=== PATIENT | female | born 1990 | race Caucasian/White ===

== ENCOUNTER 2017-03-25 12:23 | Emergency (ER) | payer OTHER, SELFPAY ==
[~2017-03-25] VITALS: Ht 167.6 cm; Wt 60.0 kg
[2017-03-25] MEDS ORDERED: NS 1,000 ML IV ONE (13:45)
[2017-03-25] MEDS ORDERED: ONDANSETRON 4MG/2ML VIAL (J2405) IV ONE (13:45)
--- NOTE | 2017-03-25 13:56 | REP ---
PA and lateral chest: There are no comparisons. The lung sprague are clear. The cardiac size is normal The brook, mediastinum, and bony thorax are unremarkable. Impression: Negative PA and lateral chest. Signed by Rafa Miller MD 03/25/2017 01:48 P
[2017-03-25 14:29] LABS: BASO # 0.1 K/mm3 (0.0-0.2); BASO % 1.2 % (0.0-1.0); EOS # 0.2 K/mm3 (0.0-0.50); EOS % 3.3 % (0.0-3.0); LARGE UNSTAINED CELL # 0.1 K/mm3 (0.0-0.4); LARGE UNSTAINED CELL % 1.1 % (0.0-4.0); LYMPH # 1.9 K/mm3 (1.5-6.5); LYMPH % 27.1 % (24.0-44.0); MEAN CORPUSCULAR HEMOGLOBIN 30.4 pg (27.0-33.0); MEAN CORPUSCULAR HGB CONC 34.3 g/dl (32.0-36.5); MEAN CORPUSCULAR VOLUME 88.7 fl (80.0-96.0); MONO # 0.4 K/mm3 (0.0-0.8); MONO % 5.3 % (0.0-5.0); NEUTROPHILS # 4.2 K/mm3 (1.8-7.7); NEUTROPHILS % 62.1 % (36.0-66.0); PLATELET COUNT, AUTOMATED 256 k/mm3 (150-450); RED CELL DISTRIBUTION WIDTH 12.2 % (11.5-14.5); WHITE BLOOD COUNT 6.8 K/mm3 (4.0-10.0)
[2017-03-25 14:46] LABS: ALBUMIN 4.2 GM/DL (3.2-5.2); ALBUMIN/GLOBULIN RATIO 1.14 (1.00-1.93); ALKALINE PHOSPHATASE 68 U/L (45-117); ALT/SGPT 25 U/L (12-78); ANION GAP 6 MEQ/L (8-16); AST/SGOT 15 U/L (15-37); BILIRUBIN,TOTAL 1.2 MG/DL (0.2-1.0); BLOOD UREA NITROGEN 9 MG/DL (7-18); CALCIUM LEVEL 9.4 MG/DL (8.5-10.1); CARBON DIOXIDE LEVEL 28 MEQ/L (21-32); CHLORIDE LEVEL 106 MEQ/L (98-107); CREATININE FOR GFR 0.75 MG/DL (0.55-1.02); GLOMERULAR FILTRATION RATE > 60.0 (>60); GLUCOSE, FASTING 86 MG/DL (70-105); POTASSIUM SERUM 3.7 MEQ/L (3.5-5.1); SODIUM LEVEL 140 MEQ/L (136-145); TOTAL PROTEIN 7.9 GM/DL (6.4-8.2)
[2017-03-25] MEDS ORDERED: ZOFR4TAB3 PO (15:09)
[2017-03-25 15:19] VITALS: BP 110/53
--- NOTE | 2017-03-27 02:16 | ECGEPIP ---
Stationary ECG Study [facility] - ED Test Date: 2017-03-25 Pat Name: FARIHA ROGERS Department: Room: - Gender: F [employer] Operator: : 1990 Requested By: DARIEN Lucas PA-C Order Number: [id number] Reading MD: Jigar Garcia Measurements Intervals Jones Rate: 66 P: 47 WV: 147 QRS: 49 QRSD: 106 T: 20 QT: 388 QTc: 407 Interpretive Statements SINUS RHYTHM WITH SINUS ARRHYTHMIA Electronically Signed On 03-27-2017 2:15:58 EDT by Jigar Garcia
[2017-04-25] MEDS ORDERED: NAPR500T3 PO (07:37)
[2017-04-25] MEDS ORDERED: CLAR10CA3 PO (07:37)
== END 2017-03-25 15:24 | disposition home or self-care (01) ==
LOC: M ED 12:23
DX: R11.0 Nausea (principal); R07.89 Other chest pain; N80.9 Endometriosis, unspecified; K59.09 Other constipation
CPT/HCPCS: 36415; 71020; 80053; 81025; 82550; 82553; 84443; 85025; 85379; 93000; 93041; 96374; 99284; J2405

== ENCOUNTER → 2017-04-20 | Outpatient (REF) | payer OTHER ==
[~2017-04-20] MED LIST: CLAR10CA3 PO; NAPR500T3 PO; PERC5TAB12 PO; ZOFR4TAB3 PO
[2017-04-20 17:03] LABS: CONTROL LINE HCG INT CTR LINE PRESENT
[2017-04-20 17:21] LABS: ALBUMIN/GLOBULIN RATIO 1.21 (1.00-1.93); ALKALINE PHOSPHATASE 64 U/L (45-117); ALT/SGPT 21 U/L (12-78); AMYLASE 40 U/L (25-115); ANION GAP 8 MEQ/L (8-16); AST/SGOT 12 U/L (15-37); BILIRUBIN,TOTAL 0.8 MG/DL (0.2-1.0); BLOOD UREA NITROGEN 15 MG/DL (7-18); CALCIUM LEVEL 9.2 MG/DL (8.5-10.1); CARBON DIOXIDE LEVEL 26 MEQ/L (21-32); CHLORIDE LEVEL 107 MEQ/L (98-107); CHOLESTEROL LEVEL 174 MG/DL (<200); CREATININE FOR GFR 0.76 MG/DL (0.55-1.02); FREE T4 0.79 NG/DL (0.76-1.46); GLOMERULAR FILTRATION RATE > 60.0 (>60); GLUCOSE, FASTING 87 MG/DL (70-105); POTASSIUM SERUM 4.4 MEQ/L (3.5-5.1); SODIUM LEVEL 141 MEQ/L (136-145); TOTAL PROTEIN 7.3 GM/DL (6.4-8.2); TRIGLYCERIDES LEVEL 149 MG/DL (<150)
[2017-04-20 17:32] LABS: BASO % 0.7 % (0.0-1.0); EOS # 0.4 K/mm3 (0.0-0.50); EOS % 5.9 % (0.0-3.0); LARGE UNSTAINED CELL # 0.1 K/mm3 (0.0-0.4); LARGE UNSTAINED CELL % 1.6 % (0.0-4.0); LYMPH # 1.8 K/mm3 (1.5-6.5); LYMPH % 28.2 % (24.0-44.0); MEAN CORPUSCULAR HEMOGLOBIN 31.1 pg (27.0-33.0); MEAN CORPUSCULAR HGB CONC 34.3 g/dl (32.0-36.5); MEAN CORPUSCULAR VOLUME 90.5 fl (80.0-96.0); MONO # 0.3 K/mm3 (0.0-0.8); MONO % 5.3 % (0.0-5.0); NEUTROPHILS # 3.8 K/mm3 (1.8-7.7); NEUTROPHILS % 58.4 % (36.0-66.0); PLATELET COUNT, AUTOMATED 272 k/mm3 (150-450); WHITE BLOOD COUNT 6.5 K/mm3 (4.0-10.0)
== END ==
LOC: M SFHCSACK 08:20
PROVIDERS: ATTEND Physician Assistant
DX: R10.2 Pelvic and perineal pain (principal); K59.09 Other constipation; Z13.29 Encounter for screening for other suspected endocrine disorder; Z13.220 Encounter for screening for lipoid disorders; Z13.21 Encounter for screening for nutritional disorder

== ENCOUNTER 2017-04-29 13:54 | Day surgery (SDC) | payer OTHER ==
[~2017-04-29] VITALS: Ht 167.6 cm; Wt 59.9 kg
[~2017-04-29 13:54] MED LIST changes: -PERC5TAB12 PO
[2017-04-29] MEDS ORDERED: LIDOCAINE 1% MDV 20ML VIAL SQ ONE (14:15)
[2017-04-29] MEDS ORDERED: LR 1,000 ML IV ONE (14:15)
[2017-04-29 14:43] LABS: CONTROL LINE UCG INT CTR LINE PRESENT
[2017-04-29 14:57] LABS: MEAN CORPUSCULAR HEMOGLOBIN 30.6 pg (27.0-33.0); MEAN CORPUSCULAR HGB CONC 34.3 g/dl (32.0-36.5); MEAN CORPUSCULAR VOLUME 89.1 fl (80.0-96.0); RED CELL DISTRIBUTION WIDTH 12.1 % (11.5-14.5); WHITE BLOOD COUNT 7.4 K/mm3 (4.0-10.0)
[2017-04-29] MEDS ORDERED: fentaNYL 100 MCG/2 ML INJECTION (J3010) As Ordered ONE (14:57)
[2017-04-29] MEDS ORDERED: MIDAZOLAM INJ 2 MG/2 ML VIAL (J2250) As Ordered ONE (14:57)
[2017-04-29] MEDS ORDERED: BUPIVACAINE HCL 0.25% 30 ML VIAL As Ordered ONE (14:59)
[2017-04-29] MEDS ORDERED: PERC5TAB12 PO (15:24)
[2017-04-29] MEDS ORDERED: ePHEDrine SULFATE 25 MG/5 ML(5MG/ML) SYRINGE As Ordered ONE (15:43)
[2017-04-29] MEDS ORDERED: ONDANSETRON 4MG/2ML VIAL (J2405) As Ordered ONE (15:48)
[2017-04-29] MEDS ORDERED: KETOROLAC 60 MG/2 ML VIAL (J1885) As Ordered ONE (15:48)
[2017-04-29] MEDS ORDERED: PROPOFOL 200 MG/20 ML VIAL As Ordered ONE (15:48)
[2017-04-29] MEDS ORDERED: dexameTHASONE 4 MG/ML 1ML VIAL (J1100) As Ordered ONE (15:48)
[2017-04-29] MEDS ORDERED: LIDOCAINE 2% INJ 100 MG/5 ML SDV (FOR ANES.) As Ordered ONE (15:49)
[2017-04-29] MEDS ORDERED: ROCURONIUM BROMIDE 50 MG/5 ML VIAL/SYRINGE As Ordered ONE (15:49)
[2017-04-29] MEDS ORDERED: NEOSTIGMINE 1MG/ML 5 ML SYRINGE (J2710) As Ordered ONE (15:49)
[2017-04-29] MEDS ORDERED: GLYCOPYRROLATE INJ 0.2 MG/ML 2 ML VIAL As Ordered ONE (15:49)
[2017-04-29] MEDS ORDERED: PERCOCET 5MG/325MG TAB As Ordered ONE (16:32)
[2017-04-29] MEDS ORDERED: MEPERIDINE INJ 25 MG/ML VIAL (J2175) IV PRN (16:45)
[2017-04-29] MEDS ORDERED: PERCOCET 5MG/325MG TAB PO PRN ×3 (16:45)
[2017-04-29] MEDS ORDERED: fentaNYL 100 MCG/2 ML INJECTION (J3010) IV PRN (16:45)
[2017-04-29] MEDS ORDERED: ONDANSETRON 4MG/2ML VIAL (J2405) IV PRN (16:45)
[2017-04-29] MEDS ORDERED: LR 1,000 ML IV SCH ×2 (16:45)
[2017-04-29] MEDS ORDERED: METOCLOPRAMIDE INJ 10MG/2ML VIAL (J2765) IV PRN (16:45)
[2017-04-29 18:30] VITALS: BP 100/57
--- NOTE | 2017-04-29 21:21 | RO ---
DATE OF PROCEDURE: 04/29/2017 PREPROCEDURE DIAGNOSIS: Pelvic pain, possible endometriosis. POSTPROCEDURE DIAGNOSIS: Endometriosis. PROCEDURE: Laparoscopy, ablation of endometriosis. SURGEON: Dr. Todd Hernandez BLINDMAKER: ANESTHESIA: General endotracheal. ESTIMATED BLOOD LOSS: Minimal. FINDINGS: Stage 1 endometriosis involving the left pelvic sidewall lateral to the left uterosacral ligament. There was one of the endometriosis implants in the anterior cul-de-sac on the right side. She had normal appearing fallopian tubes and ovaries, and normal appearing uterus. The upper abdomen was normal, including liver, stomach and gallbladder. DESCRIPTION OF PROCEDURE: The patient was taken to the operating room where general endotracheal anesthesia was induced. She was prepped and draped in a sterile fashion in the dorsal lithotomy position. The [employer] uterine tenaculum was placed as a manipulator and Bacon catheter was placed. Periumbilical incision was made with a scalpel, Veress needle was placed through this incision while tenting up on the skin of the abdomen. Intraabdominal location of Veress needle was assessed by use of a saline-filled syringe. Pneumoperitoneum was created. 5 mm trocar using Visiport was inserted through this incision. A separate 5 mm suprapubic port was placed under direct visualization. The pelvis was surveyed with a grasping instrument. Monopolar cautery was used to ablate endometriosis implants in the posterior pelvis on the left as well as the anterior cul-de-sac. Good hemostasis was noted. Pneumoperitoneum was released. All instruments were removed. The skin was closed with #4-0 Monocryl subcuticular sutures. The sponge, instrument and needle counts are correct.
== END 2017-04-29 18:40 | disposition home or self-care (01) ==
LOC: M SDC 13:54
PROVIDERS: ATTEND Specialist
DX: N80.3 Endometriosis of pelvic peritoneum (principal); K21.9 Gastro-esophageal reflux disease without esophagitis; Z79.899 Other long term (current) drug therapy

== ENCOUNTER 2017-06-01 10:39 | Outpatient (CLI) | payer OTHER ==
[~2017-06-01] VITALS: Ht 167.6 cm; Wt 59.4 kg
[~2017-06-01 10:39] MED LIST changes: +PERC5TAB12 PO
[2017-06-01] MEDS ORDERED: NS 1,000 ML IV ONE (10:45)
--- NOTE | 2017-06-01 11:58 | ROOR ---
Patient Name: Seble Sarabia Procedure Date: 06/01/2017 11:33 AM Date of : 1990 Age: 27 Room: [facility] Gender: Female Note Status: Finalized Procedure: Total Colonoscopy to Cecum Indications: Change in bowel habits, Constipation Providers: Angel Weir MD Referring MD: Jessie Johnson Requesting Provider: Medicines: Monitored Anesthesia Care Complications: No immediate complications. Procedure: Pre-Anesthesia Assessment: - The heart rate, respiratory rate, oxygen saturations, blood pressure, adequacy of pulmonary ventilation, and response to care were monitored throughout the procedure. The Colonoscope was introduced through the anus and advanced to the cecum, identified by appendiceal orifice and ileocecal valve. The colonoscopy was performed without difficulty. The patient tolerated the procedure well. The quality of the bowel preparation was good. Findings: The perianal and digital rectal examinations were normal. Non-bleeding internal hemorrhoids were found during retroflexion. The hemorrhoids were small and Grade I (internal hemorrhoids that do not prolapse). No other significant abnormalities were identified in a careful examination of the remainder of the colon. The exam was otherwise without abnormality on direct and retroflexion views. Impression: - Non-bleeding internal hemorrhoids. - The examination was otherwise normal on direct and retroflexion views. - No specimens collected. - The exam was otherwise normal to the cecum. Recommendation: - Patient has a contact number available for emergencies. The signs and symptoms of potential delayed complications were discussed with the patient. Return to normal activities tomorrow. Written discharge instructions were provided to the patient. - High fiber diet. - Discharge patient to home. - Continue present medications. - Repeat colonoscopy at age 51 for screening purposes. - Return to referring physician. - The findings and recommendations were discussed with the patient's family. Angel Weir MD Angel Weir MD 06/01/2017 11:58:18 AM This report has been signed electronically. Number of Addenda: 0 Note Initiated On: 06/01/2017 11:33 AM Estimated Blood Loss: Estimated blood loss: none.
[2017-06-01 12:21] VITALS: BP 107/64
== END 2017-06-01 12:24 | disposition home or self-care (01) ==
LOC: M OPP 10:39
PROVIDERS: ATTEND Internal Medicine Gastroenterology
DX: K58.1 Irritable bowel syndrome with constipation (principal); R19.4 Change in bowel habit; K64.0 First degree hemorrhoids; R12 Heartburn; M54.9 Dorsalgia, unspecified; F41.9 Anxiety disorder, unspecified; Z79.899 Other long term (current) drug therapy

== ENCOUNTER → 2017-07-27 | Outpatient (REF) | payer OTHER ==
[2017-07-27 15:19] LABS: ALBUMIN 4.2 GM/DL (3.2-5.2); ALBUMIN/GLOBULIN RATIO 1.24 (1.00-1.93); ALKALINE PHOSPHATASE 60 U/L (45-117); ALT/SGPT 23 U/L (12-78); ANION GAP 6 MEQ/L (8-16); AST/SGOT 12 U/L (7-37); BILIRUBIN,TOTAL 1.1 MG/DL (0.2-1.0); BLOOD UREA NITROGEN 15 MG/DL (7-18); CALCIUM LEVEL 9.3 MG/DL (8.5-10.1); CARBON DIOXIDE LEVEL 29 MEQ/L (21-32); CHLORIDE LEVEL 104 MEQ/L (98-107); CREATININE FOR GFR 0.75 MG/DL (0.55-1.02); GLOMERULAR FILTRATION RATE > 60.0 (>60); GLUCOSE, FASTING 83 MG/DL (70-105); POTASSIUM SERUM 4.3 MEQ/L (3.5-5.1); SODIUM LEVEL 139 MEQ/L (136-145); TOTAL PROTEIN 7.6 GM/DL (6.4-8.2)
== END ==
LOC: M SFHCSACK 08:24
PROVIDERS: ATTEND Physician Assistant
DX: E55.9 Vitamin D deficiency, unspecified (principal); F41.9 Anxiety disorder, unspecified; Z79.899 Other long term (current) drug therapy

== ENCOUNTER 2019-03-19 12:36 | Emergency (ER) | payer OTHER ==
[~2019-03-19] VITALS: Ht 167.6 cm; Wt 63.4 kg
[~2019-03-19 12:36] MED LIST changes: +NAPR-885 PO; -NAPR500T3 PO; +ZOFR4TAB14 PO; -ZOFR4TAB3 PO
[2019-03-19] MEDS ORDERED: IBUP1TAB7 PO (12:44)
[2019-03-19 13:55] LABS: BLOOD UREA NITROGEN 10 MG/DL (7-18); CALCIUM LEVEL 9.4 MG/DL (8.5-10.1); CARBON DIOXIDE LEVEL 27 MEQ/L (21-32); CHLORIDE LEVEL 109 MEQ/L (98-107); CREATININE FOR GFR 0.68 MG/DL (0.55-1.30); GLOMERULAR FILTRATION RATE > 60.0 (>60); GLUCOSE, FASTING 101 MG/DL (70-100); SODIUM LEVEL 143 MEQ/L (136-145)
[2019-03-19 15:13] LABS: BASO # 0.1 10^3/uL (0.0-0.2); EOS # 0.6 10^3/uL (0.0-0.50); EOS % 8.6 % (0.0-3.0); HEMATOCRIT 40.9 % (36.0-47.0); HEMOGLOBIN 13.4 g/dl (12.0-15.5); LYMPH # 1.7 10^3/uL (1.5-6.5); LYMPH % 23.3 % (24.0-44.0); MEAN CORPUSCULAR HEMOGLOBIN 29.8 pg (27.0-33.0); MEAN CORPUSCULAR HGB CONC 32.8 g/dl (32.0-36.5); MEAN CORPUSCULAR VOLUME 90.9 fl (80.0-96.0); MONO # 0.5 10^3/uL (0.0-0.8); NEUTROPHILS # 4.3 10^3/uL (1.8-7.7); NEUTROPHILS % 59.1 % (36.0-66.0); PLATELET COUNT, AUTOMATED 254 10^3/uL (150-450); WHITE BLOOD COUNT 7.3 10^3/uL (4.0-10.0)
[2019-03-19 15:42] LABS: HCG, SERUM QUANTITATIVE 15 MIU/ML
[2019-03-19] MEDS ORDERED: NORCO, ANEXSIA 5/325MG TABLET (HYDROcodone/ACETAMINOPHEN) PO ONE (16:30)
[2019-03-19 18:03] VITALS: BP 112/64
--- NOTE | 2019-03-20 07:57 | REP ---
PELVIC ULTRASOUND: Real-time sonographic evaluation of the pelvis is performed. Transabdominal and endovaginal technique is utilized. The uterus measures 8.4 x 3.3 x 4.7 cm. The endometrial thickness is 10 mm. There is no intrauterine gestational sac identified. Right ovary measures 3.1 x 2.9 x 1.7 cm and left ovary 2.5 x 1.2 x 1.9 cm. There is no adnexal mass. There is trace free fluid. Differential diagnosis would include very early intrauterine , missed or ectopic . Suggest correlation with serial quantitative beta hCG values. Electronically Signed by Rafa Varner MD 03/20/2019 05:03 P
== END 2019-03-19 18:10 | disposition home or self-care (01) ==
LOC: M ED 12:36
DX: O20.9 Hemorrhage in early pregnancy, unspecified (principal); O99.341 Other mental disorders complicating pregnancy, first trimester; F41.9 Anxiety disorder, unspecified; Z3A.00 Weeks of gestation of pregnancy not specified

== ENCOUNTER 2019-03-30 10:22 | Emergency (ER) | payer OTHER ==
[~2019-03-30] VITALS: Ht 167.6 cm; Wt 61.4 kg
[~2019-03-30 10:22] MED LIST changes: +IBUP1TAB7 PO
[2019-03-30] MEDS ORDERED: NS 1,000 ML IV ONE (11:00)
[2019-03-30 11:05] LABS: BASO # 0.1 10^3/uL (0.0-0.2); EOS # 0.3 10^3/uL (0.0-0.50); EOS % 4.6 % (0.0-3.0); HEMATOCRIT 40.5 % (36.0-47.0); HEMOGLOBIN 13.4 g/dl (12.0-15.5); LYMPH # 1.8 10^3/uL (1.5-6.5); MEAN CORPUSCULAR HEMOGLOBIN 30.5 pg (27.0-33.0); MEAN CORPUSCULAR HGB CONC 33.1 g/dl (32.0-36.5); MEAN CORPUSCULAR VOLUME 92.3 fl (80.0-96.0); MONO # 0.6 10^3/uL (0.0-0.8); MONO % 8.6 % (0.0-5.0); NEUTROPHILS # 3.9 10^3/uL (1.8-7.7); NEUTROPHILS % 58.2 % (36.0-66.0); PLATELET COUNT, AUTOMATED 269 10^3/uL (150-450); RED BLOOD COUNT 4.39 10^6/uL (4.00-5.40); WHITE BLOOD COUNT 6.7 10^3/uL (4.0-10.0)
--- NOTE | 2019-03-30 13:22 | REP ---
Clinical: Vaginal bleeding for dating and viability. Technique: Transabdominal and transvaginal first trimester obstetrical ultrasound with color Doppler evaluation. Comparison: 03/19/2019. Findings: Heterogeneous anteverted uterus measures 9.1 x 3.2 x 5.6 cm. Endometrial complex measures 3.4 mm thickness. There is no decidual reaction or intrauterine identified. The bilateral ovaries are normal in appearance and vascularity without torsion. Right ovary measures 2.9 x 1.7 x 1.3 cm (RI 0.51). Left ovary measures 2.8 x 1.4 x 1.2 cm (RI 0.54). 1.5 cm right ovarian hemorrhagic cyst may represent corpus luteum. Impression: No evidence for intrauterine . Correlation with serial HCG levels recommended. Differential diagnosis includes missed spontaneous , early , ectopic cannot be excluded. Electronically Signed by Shahid Everett MD 03/30/2019 01:14 P
[2019-03-30 13:51] VITALS: BP 103/55
== END 2019-03-30 14:05 | disposition home or self-care (01) ==
LOC: M ED 10:22
DX: O20.9 Hemorrhage in early pregnancy, unspecified (principal); Z3A.01 Less than 8 weeks gestation of pregnancy

== ENCOUNTER → 2019-04-02 | Outpatient (CLI) | payer OTHER | LOC: M LAB 13:44 | PROVIDERS: ATTEND Physician Assistant | DX: N93.9 Abnormal uterine and vaginal bleeding, unspecified (principal) ==

== ENCOUNTER → 2019-04-04 | Outpatient (CLI) | payer OTHER | LOC: M LAB 10:08 | PROVIDERS: ATTEND Specialist | DX: N93.8 Other specified abnormal uterine and vaginal bleeding (principal) ==

== ENCOUNTER → 2019-04-05 | Outpatient (REF) | payer OTHER | LOC: M LAB REF 13:20 | PROVIDERS: ATTEND Specialist | DX: O02.1 Missed abortion (principal) ==

== ENCOUNTER → 2019-04-06 | Outpatient (CLI) | payer OTHER | LOC: M LAB 12:32 | PROVIDERS: ATTEND Specialist | DX: N93.8 Other specified abnormal uterine and vaginal bleeding (principal) ==

== ENCOUNTER → 2019-04-09 | Outpatient (CLI) | payer OTHER | LOC: M LAB 08:35 | PROVIDERS: ATTEND Specialist | DX: O02.1 Missed abortion (principal) ==